=== PATIENT | male | born 1955 | race African-American/Black ===

== ENCOUNTER 2025-07-07 02:59 | Inpatient (IN) | payer OTHER, MEDICAID, MEDICARE ==
[~2025-07-07] VITALS: Ht 185.4 cm; Wt 80.7 kg
[~2025-07-07 02:59] MED LIST: LOSA25TA26 PO
[2025-07-07] MEDS: FUROSEMIDE 40MG/4ML VIAL IVP ONE (03:29)
[2025-07-07] MEDS: METHYLPREDNISOLONE SOD SUCC 125MG/2ML (ACT-O-VIAL) IV ONE (03:29)
[2025-07-07 03:40] VITALS: RESP 27
[2025-07-07] MEDS: AZITHROMYCIN 500MG/250ML 250 ML IV ONE (03:40)
[2025-07-07 03:42] LABS: BASOPHILS % 0.3 % (0.0-2.0); EOSINOPHILS % 1.1 % (0.0-5.0); HEMATOCRIT. 48.6 % (42.0-52.0); HEMOGLOBIN. 15.6 g/dL (14.0-18.0); LYMPHOCYTES % 15.7 % (20.0-50.0); MEAN PLATELET VOLUME 8.7 fl (7.4-10.4); MONOCYTES % 8.0 % (2.0-8.0); NEUTROPHILS % 74.9 % (40.0-76.0); PLATELET 188 x1000/uL (130-400); RED BLOOD CELL COUNT 4.82 mill/uL (4.7-6.1); RED CELL DISTRIBUTION WIDTH 17.8 % (11.6-14.6)
[2025-07-07 03:44] LABS: BG DEOXYHEMOGLOBIN 57.0 % (0.0-5.0)
[2025-07-07 03:59] LABS: UREA NITROGEN BLOOD 16 mg/dL (9-23)
[2025-07-07 04:01] LABS: ASPARTATE AMINOTRANSFERASE 162 IU/L (<34); PROTEIN TOTAL 7.5 g/dL (6.0-8.3)
[2025-07-07 04:02] LABS: BILIRUBIN DIRECT 0.4 mg/dL (<=3.0); BILIRUBIN TOTAL 1.1 mg/dL (0.1-1.0)
[2025-07-07] MEDS: ALBUTEROL (0.083%) 2.5MG/3ML NEB HHN SCH (04:40)
[2025-07-07 04:48] LABS: CREATININE 1.6 mg/dL (0.6-1.3)
[2025-07-07 04:51] LABS: TROPONIN I HIGH SENSITIVITY 77 ng/L (3.0-53)
[2025-07-07] MEDS ORDERED: IOHEXOL-350 50 ML BOTTLE ONE (07:19)
[2025-07-07] MEDS ORDERED: DOCUSATE SODIUM 100MG CAPSULE PO PRN (08:30)
[2025-07-07] MEDS ORDERED: CLONIDINE 0.1MG TABLET PO PRN (08:30)
[2025-07-07] MEDS ORDERED: ONDANSETRON HCL 4MG/2ML INJ IV PRN (08:30)
[2025-07-07] MEDS ORDERED: IPRATROPIUM/ALBUTEROL 0.5-3(2.5)MG/3ML NEB HHN SCH (08:30)
[2025-07-07] MEDS ORDERED: ACETAMINOPHEN 325MG TABLET PO PRN ×2 (08:30)
[2025-07-07] MEDS ORDERED: MAGNESIUM/ALUMINUM HYDROXIDE/SIMETHICONE 30ML UDC PO PRN (08:30)
[2025-07-07] MEDS ORDERED: GUAIFENESIN 200MG/10ML SUGAR FREE UDC PO PRN (08:30)
[2025-07-07 08:37] VITALS: PULSE 104; RESP 24; O2SAT 97
[2025-07-07] MEDS: IPRATROPIUM/ALBUTEROL 0.5-3(2.5)MG/3ML NEB NEB PRN (08:37)
[2025-07-07 09:31] LABS: BG BASE EXCESS -2.0 mmol/L (-2.0-3.0); BG CARBOXYHEMOGLOBIN 2.9 % (0.5-1.5); BG DEOXYHEMOGLOBIN 10.5 % (0.0-5.0); BG FRACTION INSPIRED OXYGEN 21; BG HCO3 ACT 22.0 mmol/L (21.0-28.0); BG METHEMOGLOBIN 0.1 % (0.5-1.5); BG OXYGEN SATURATION 89.2 % (94.0-98.0); BG OXYHEMOGLOBIN 86.5 % (94.0-98.0); BG PCO2 35.5 mmHg (35.0-48.0); BG PH 7.410 (7.350-7.450); BG PO2 53.8 mmHg (83.0-108.0); BG SAMPLE SITE RIGHT RADIAL; BG TOTAL HEMOGLOBIN 14.7 g/dL (13.5-17.5); BG VENT MODE ROOM AIR
[2025-07-07] MEDS: PANTOPRAZOLE SODIUM 40 MG/VIAL IV SCH (09:53)
[2025-07-07] MEDS: FUROSEMIDE 40MG/4ML VIAL IV SCH (09:53)
[2025-07-07] MEDS: AMLODIPINE 5MG TABLET PO SCH (09:57)
[2025-07-07] MEDS: PREDNISONE 20MG TABLET PO SCH (09:58)
[2025-07-07 14:50] LABS: HEPATITIS A AB IGM NEGATIVE (Negative)
[2025-07-07 14:51] LABS: HEPATITIS B CORE AB IGM NEGATIVE (Negative); HEPATITIS C AB NON REACTIVE (Neg) (Negative)
[2025-07-07 15:34] VITALS: BP 141/92; PULSE 100; RESP 18; TEMP 36.5292
[2025-07-07 16:00] VITALS: BP 142/88; PULSE 98; RESP 19; TEMP 36.6; O2SAT 96
[2025-07-07 16:27] LABS: TROPONIN I HIGH SENSITIVITY 72 ng/L (3.0-53)
[2025-07-07 20:00] VITALS: BP 126/73; PULSE 96; RESP 16; TEMP 36.7; O2SAT 99
[2025-07-07 20:23] VITALS: PULSE 97; RESP 20; O2SAT 97
[2025-07-07] MEDS: IPRATROPIUM BROMIDE (0.02%) 0.5MG/2.5ML NEB HHN SCH (20:23)
[2025-07-07] MEDS: CEFTRIAXONE 2GM/50ML 50 ML IV SCH (20:35)
[2025-07-07 22:33] LABS: CREATININE 1.5 mg/dL (0.6-1.3)
[2025-07-07 22:34] LABS: UREA NITROGEN BLOOD 22.0 mg/dL (9-23)
[2025-07-08] VITALS (8 sets, daily range): BP systolic 129–133; BP diastolic 84–88; PULSE 76–124; RESP 18–24; TEMP 36.3–36.4; O2SAT 92–100
[2025-07-08 02:11] LABS: TROPONIN I HIGH SENSITIVITY 80 ng/L (3.0-53)
[2025-07-08 06:59] LABS: CREATININE 1.4 mg/dL (0.6-1.3); T4 FREE 1.49 ng/dL (0.89-1.76); TRIGLYCERIDE 27 mg/dL (0-150); UREA NITROGEN BLOOD 24 mg/dL (9-23)
[2025-07-08 07:00] LABS: LDL CHOLESTEROL 29 mg/dL (5-100)
[2025-07-08] MEDS ORDERED: PREDNISONE 20MG TABLET PO SCH (09:00)
[2025-07-08] MEDS: ENOXAPARIN 40MG/0.4ML SYR SUBCUT SCH ×2 (09:20→14:53)
[2025-07-08 10:42] LABS: BASOPHILS % 0.1 % (0.0-2.0); EOSINOPHILS % 0.0 % (0.0-5.0); HEMATOCRIT. 42.8 % (42.0-52.0); HEMOGLOBIN. 14.1 g/dL (14.0-18.0); LYMPHOCYTES % 8.4 % (20.0-50.0); MEAN PLATELET VOLUME 8.7 fl (7.4-10.4); MONOCYTES % 7.6 % (2.0-8.0); NEUTROPHILS % 83.9 % (40.0-76.0); PLATELET 171 x1000/uL (130-400); RED BLOOD CELL COUNT 4.30 mill/uL (4.7-6.1); RED CELL DISTRIBUTION WIDTH 15.9 % (11.6-14.6)
== END 2025-07-08 18:50 | disposition short-term general hospital (02) | DRG 280 ==
LOC: ER 02:59 → 8WST 04:46 → EDBEDREQ 05:22 → EDBEDREQTM 05:22 → ENRESERV 05:43
PROVIDERS: ADMIT Internal Medicine; ATTEND Internal Medicine
PROC: 5A09357 Assistance with Respiratory Ventilation, Less than 24 Consecutive Hours, Continuous Positive Airway Pressure (ICD-10-PCS; principal; 2025-07-07)
DX: I11.0 Hypertensive heart disease with heart failure (principal); J18.9 Pneumonia, unspecified organism; I21.4 Non-ST elevation (NSTEMI) myocardial infarction; J96.01 Acute respiratory failure with hypoxia; E87.20 Acidosis, unspecified; J44.0 Chronic obstructive pulmonary disease with (acute) lower respiratory infection; N17.9 Acute kidney failure, unspecified; I50.9 Heart failure, unspecified; J44.1 Chronic obstructive pulmonary disease with (acute) exacerbation; I49.1 Atrial premature depolarization; R73.9 Hyperglycemia, unspecified; Z79.899 Other long term (current) drug therapy
CPT/HCPCS: 36415; 36600; 71045; 71275; 80048; 80061; 80076; 82375; 82553; 82803; 82805; 83036; 83605; 83735; 83880; 84439; 84443; 84484; 85025; 85379; 86705; 86709; 87340; 93005; 93970; 94070; 94640; 94660; 99285; J0456; J0696; J1650; J1938; J2470; J2919; J7512; Q9967